=== PATIENT | female | born 1955 | race Two or more races ===

== ENCOUNTER 2025-06-20 11:28 | Emergency (ER) | payer OTHER ==
[~2025-06-20] VITALS: Ht 162.6 cm; Wt 113.0 kg
[2025-06-20 11:55] VITALS: PULSE 78; RESP 13; TEMP 97.8; O2SAT 97
--- NOTE | 2025-06-20 11:56 | ED.PDOC ---
History of Present Illness HPI Comments 70-year-old female BIBA with prior medical history of AFib, hypertension(do not take meds this morning) and the chief complaint of palpitations. EMS report that the patient was picked up from home after calling for symptoms of weakness, dizziness, shortness of breath, lightheadedness and fluttering chest pain which all started this morning. EMS notes the when the firefighters arrived to the residence, the patient had a heart rate between 180-130 on scene. In route to the ER the patient has a heart rate of 83. Patient notes that she does take blood thinners. 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 Family History Family History: Reviewed,noncontributory to illness, Unknown Social History Smoker: Non-Smoker Alcohol: Denies ETOH Use Drugs: Denies Drug Use Lives In: Home Constitutional: reports: weakness; denies: chills, diaphoresis, fatigue, fever, malaise, sweats, others EENTM: denies: blurred vision, double vision, ear bleeding, ear discharge, ear drainage, ear pain, ear ringing, eye pain, eye redness, hearing loss, mouth pain, mouth swelling, nasal discharge, nose bleeding, nose congestion, nose pain, photophobia, tearing, throat pain, throat swelling, voice changes, others Respiratory: reports: shortness of breath; denies: cough, hemoptysis, orthopnea, SOB at rest, SOB with excertion, stridor, wheezing, others Cardiovascular: reports: chest pain (Fluttering chest pain); denies: dizzy spells, diaphoresis, Dyspnea on exertion, edema, irregular heart beat, left arm pain, lightheadedness, palpitations, PND, syncope, others Gastrointestinal: denies: abdomen distended, abdominal pain, blood streaked bowels, constipated, diarrhea, dysphagia, difficulty swallowing, hematemesis, melena, nausea, poor appetite, poor fluid intake, rectal bleeding, rectal pain, vomiting, others Genitourinary: denies: abnormal vagina bleeding, burning, dyspareunia, dysuria, flank pain, frequency, hematuria, incontinence, pain, , vagina discharge, urgency, others Neurological: reports: dizziness, others (Lightheadedness); denies: fainting, headache, left sided numbness, left sided weakness, numbness, paresthesia, pre- existing deficit, right sided numbness, right sided weakness, seizure, speech problems, tingling, tremors, weakness Musculoskeletal: denies: back pain, gout, joint pain, joint swelling, muscle pain, muscle stiffness, neck pain, others Integumetry: denies: bruises, change in color, change in hair/nails, dryness, laceration, lesions, lumps, rash, wounds, others Allergic/Immunocompromised: denies: Difficulty Healing, Frequent Infections, Hives, Itching, others Hematologic/Lymphatic: denies: anemia, blood clots, easy bleeding, easy bruising, swollen glands, others Endocrine: denies: excessive hunger, excessive sweating, excessive thirst, excessive urination, flushing, intolerance to cold, intolerance to heat, unexplained weight gain, unexplained weight loss, others Psychiatric: denies: anxiety, bipolar disorder, depression, hopeless, panic disorder, schizophrenia, sleepless, suicidal, others All Other Systems: Reviewed and Negative Physical Exam General Appearance: Moderate Distress, Normal HEENT: Normal ENT Inspection, Pharynx Normal, TMs Normal Neck: Full Range of Motion, Non-Tender, Normal, Normal Inspection Respiratory: Chest Non-Tender, Lungs Clear, No Accessory Muscle Use, No Respiratory Distress, Normal Breath Sounds Cardiovascular: No Edema, No JVD, No Murmur, No Gallop, Normal Peripheral Pulses, Regular Rate/Rhythm Breast Exam: Deferred Gastrointestinal: No Organomegaly, Non Tender, No Pulsatile Mass, Normal Bowel Sounds, Soft Genitalia: Deferred Pelvic: Deferred Rectal: Deferred Extremities: No calf tenderness, Normal capillary refill, Normal inspection, Normal range of motion, Non-tender, No pedal edema Musculoskeletal : Apperance: Normal Neurologic: Alert, joint setter II-XII nml as Tested, No Motor Deficits, Normal Affect, Normal Mood, No Sensory Deficits Cerebellar Function: Normal Reflexes: Normal Skin: Dry, Normal Color, Warm Peripheral Pulses: 3+ Radial (R), 3+ Radial (L) Lymphatic: No Adenopathy Was a procedure done? Was a procedure done?: No Differential Dx Considerations may include: Anxiety Electrolyte imbalance X-Ray, Labs, Meds, VS Vital Signs Date Time Temp Pulse Resp B/P (MAP) Pulse Ox O2 Delivery O2 Flow Rate FiO2 06/20/25 13:00 78 15 160/84 (109) 98 06/20/25 11:55 97.8 78 13 163/55 (91) 97 97.8 06/20/25 11:55 78 13 97 Room Air* 0 21 06/20/25 11:41 98.5 83 22 151/100 (117) 98 98.5 06/20/25 11:30 80 Lab Test 06/20/25 12:00 06/20/25 11:51 Range/Units White Blood Count 6.9 4.4-10.8 10^3/uL Red Blood Count 4.97 4.0-5.20 10^6/uL Hemoglobin 16.0 12.2-16.2 g/dL Hematocrit 45.5 36.0-46.0 % Mean Corpuscular Volume 91.7 80.0-100.0 fL Mean Corpuscular Hemoglobin 32.2 H 28.0-32.0 pg Mean Corpuscular Hemoglobin Concent 35.2 32.0-36.0 g/dL Red Cell Distribution Width 13.0 11.8-14.3 % Platelet Count 254 140-450 10^3/uL Mean Platelet Volume 8.9 6.9-10.8 fL Neutrophils (%) (Auto) 55.9 37.0-80.0 % Lymphocytes (%) (Auto) 34.2 10.0-50.0 % Monocytes (%) (Auto) 7.4 0.0-12.0 % Eosinophils (%) (Auto) 1.9 0.0-7.0 % Basophils (%) (Auto) 0.6 0.0-2.0 % Neutrophils # (Auto) 3.8 1.6-8.6 10 ^3/uL Lymphocytes # (Auto) 2.4 0.4-5.4 10 ^3/uL Monocytes # (Auto) 0.5 0-1.3 10 ^3/uL Eosinophils # (Auto) 0.1 0-0.8 10 ^3/uL Basophils # (Auto) 0 0-0.2 10 ^3/uL Nucleated Red Blood Cells 0.1 % Sodium Level 142 136-145 mmol/L Potassium Level 3.8 3.5-5.1 mmol/L Chloride Level 106 98-107 mmol/L Carbon Dioxide Level 25 20-31 mmol/L Anion Gap 11 5-15 Blood Urea Nitrogen 10 9-23 mg/dL Creatinine 0.77 0.550-1.02 mg/dL Glomerular Filtration Rate Calc 84 >90 mL/min BUN/Creatinine Ratio 13.0 10.0-20.0 Serum Glucose 95 74-106 mg/dL Calcium Level 10.3 8.7-10.4 mg/dL Troponin I High Sensitivity 4 </=34 ng/L Urine Color Colorless Yellow Urine Clarity Clear Clear Urine pH 7.0 5.0-9.0 Urine Specific [place] 1.002 1.001-1.035 Urine Protein Negative Negative Urine Ketones Negative Negative Urine Blood Negative Negative /uL Urine Nitrite Negative Negative Urine Bilirubin Negative Negative Urine Urobilinogen Normal Negative mg/dL Urine Leukocyte Esterase Negative Negative /uL Urine RBC None seen 0 - 4 /hpf Urine Microscopic WBC < 1 0-5 /HPF Urine Squamous Epithelial Cells Few <5 /hpf Urine Bacteria None seen None Seen /hpf Urine Glucose Normal Normal mg/dL Current Medications Medications (Trade) Dose Ordered Sig/Nuris Route Start Time Stop Time Status Last Admin Lorazepam (Ativan Inj) 1 mg ONCE ONCE IV 06/20/25 11:45 06/20/25 11:46 DC 06/20/25 12:08 Patient alert. Anxious. Vitals stable. Answering questions. Was given Ativan. Cardiac marker within normal limits. EKG does not show any acute changes. WBC within normal limits. Hemoglobin within normal limits. She is comfortable. She states that she is pain-free. No leg swelling. No shortness a breath. Explained to the patient. Was told to follow up with her primary care physician. Was told to come back if there is any problem. Time of 1ST Reevaluation: 11:55 Reevaluation 1ST: Improved Patient Education/Counseling: Diagnosis, Treatment, Prognosis Family Education/Counseling: No Family Present SEPSIS Sepsis Screen Physician Orders Electrocardigram (06/20/25 11:35) Vital Signs Date Time Temp Pulse Resp B/P (MAP) Pulse Ox O2 Delivery O2 Flow Rate FiO2 06/20/25 13:00 78 15 160/84 (109) 98 06/20/25 11:55 97.8 78 13 163/55 (91) 97 97.8 06/20/25 11:55 78 13 97 Room Air* 0 21 06/20/25 11:41 98.5 83 22 151/100 (117) 98 98.5 06/20/25 11:30 80 Laboratory Tests Test 06/20/25 12:00 White Blood Count 6.9 10^3/uL (4.4-10.8) Medications Medications Dose Ordered Sig/Nuris Route Start Time Stop Time Status Last Admin Dose Admin Lorazepam 1 mg ONCE ONCE IV 06/20/25 11:45 06/20/25 11:46 DC 06/20/25 12:08 Departure 1 Departure Time of Disposition: 13:25 Impression: Primary Impression: HTN (hypertension) Qualified Codes: I10 - Essential (primary) hypertension Additional Impression: Musculoskeletal chest pain Disposition: HOME / SELF CARE / HOMELESS Condition: Good Discharged With: Self Critical Care Note Critical Care Time?: No Stability Stability form required: No Heart Score Heart Score: Heart Score Response (Comments) Value History Slightly Suspicious 0 EKG Normal 0 Age >65 2 Risk Factors 1 or 2 risk factors 1 Troponin Normal limit 0 Total 3 I personally scribed for LAURA DYE MD ([email or web address]) on 06/20/25 at 11:56. Electronically submitted by Garfield Rod ([email or web address]). LAURA DYE MD Jun 20, 2025 11:56
[2025-06-20] MEDS: LORazepam 2MG/ML-1ML VIAL IV ONE (12:08)
[2025-06-20 12:20] LABS: Hematocrit 45.5 % (36.0-46.0); Hemoglobin 16.0 g/dL (12.2-16.2); Mean Corpuscular Hemoglobin 32.2 pg (28.0-32.0); Mean Corpuscular Volume 91.7 fL (80.0-100.0); Nucleated Red Blood Cells % 0.1 %
[2025-06-20 12:34] LABS: Chloride 106 mmol/L (98-107); Potassium 3.8 mmol/L (3.5-5.1); Sodium 142 mmol/L (136-145)
[2025-06-20 12:35] LABS: Anion Gap 11 (5-15); Calcium 10.3 mg/dL (8.7-10.4); Carbon Dioxide 25 mmol/L (20-31)
[2025-06-20 12:40] LABS: BUN/Creatinine Ratio 13.0 (10.0-20.0); Blood Urea Nitrogen 10 mg/dL (9-23); Glucose 95 mg/dL (74-106)
[2025-06-20 12:46] LABS: Urine Protein, UAD Negative (Negative)
[2025-06-20 13:00] VITALS: BP 160/84; PULSE 78; RESP 15; O2SAT 98
--- NOTE | 2025-06-21 12:30 | ECG ---
[facility] Test Date: 2025-06-20 Test Time: 11:30:42 Pat Name: JEN ALEMAN Department: ED Room: Gender: F Health Record Technician: aline : 1955 Requested By: LAURA DYE Order Number: [id number] Reading MD: Measurements Intervals Brice Rate: 80 P: 62 RI: 171 QRS: -14 QRSD: 97 T: 7 QT: 356 QTc: 411 Interpretive Statements Sinus rhythm Inferior infarct, old Baseline wander in lead(s) II,III,aVF Please click the below link to view image of tracing.
== END 2025-06-20 13:45 | disposition home or self-care (01) ==
LOC: ER 11:28 → EDBD 11:28 → ER 13:42
DX: I10 Essential (primary) hypertension (principal); R07.89 Other chest pain; I48.91 Unspecified atrial fibrillation; Z88.0 Allergy status to penicillin; Z79.899 Other long term (current) drug therapy
CPT/HCPCS: 36415; 80048; 81001; 84484; 85025; 93005; 96374; 99284; J2060

== ENCOUNTER 2025-10-30 12:45 | Emergency (ER) | payer OTHER ==
[~2025-10-30] VITALS: Ht 167.6 cm; Wt 94.5 kg
--- NOTE | 2025-10-30 13:16 | ECG ---
[facility] Test Date: 2025-10-30 Test Time: 13:00:07 Pat Name: JEN ALEMAN Department: ED Room: Gender: F Courtroom Deputy: BENITA : 1955 Requested By: LAURA DYE Order Number: [id number] Reading MD: Omkar Flores Measurements Intervals [place] Rate: 86 P: 47 MI: 145 QRS: -14 QRSD: 103 T: 0 QT: 372 QTc: 445 Interpretive Statements Sinus rhythm Abnormal R-wave progression, early transition Inferior infarct, old Artifact in lead(s) II,III,aVF,V1,V2,V3,V4,V5,V6 Electronically Signed On 10-30-2025 15:10:05 PST by Omkar Flores Please click the below link to view image of tracing.
--- NOTE | 2025-10-30 13:22 | ED.PDOC ---
SOB-HPI HPI Comments 70-year-old female with PMHx HTN, seizure, meningioma, a-fib presents to the ED via EMS with a chief complaint of shortness of breath onset 10 days. Per EMS, patient was at the [facility] due to shortness of breath, cough for the past 10 days, was diagnosed with pneumonia. Patient states she began experiencing chest pressure, noticed shortness of breath worsened. Upon EMS arrival patient's O2 sat was 89% on RA, was given 3 breathing treatments in route to ED, O2 saturation improved tonight 97% on RA. Denies fever, chills, dizziness, headache, nausea, vomiting, diarrhea, numbness/tingling, dysuria, hematuria, hemoptysis. no other symptoms or modifying factors present at this time. 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 Family History Family History: Reviewed,noncontributory to illness, Unknown Social History Smoker: Non-Smoker Alcohol: Denies ETOH Use Drugs: Denies Drug Use Lives In: Home Constitutional: denies: chills, diaphoresis, fatigue, fever, malaise, sweats, weakness, others EENTM: denies: blurred vision, double vision, ear bleeding, ear discharge, ear drainage, ear pain, ear ringing, eye pain, eye redness, hearing loss, mouth pain, mouth swelling, nasal discharge, nose bleeding, nose congestion, nose pain, photophobia, tearing, throat pain, throat swelling, voice changes, others Respiratory: reports: cough, shortness of breath; denies: hemoptysis, orthopnea, SOB at rest, SOB with excertion, stridor, wheezing, others Cardiovascular: denies: chest pain, dizzy spells, diaphoresis, Dyspnea on exertion, edema, irregular heart beat, left arm pain, lightheadedness, palpitations, PND, syncope, others Gastrointestinal: denies: abdomen distended, abdominal pain, blood streaked bowels, constipated, diarrhea, dysphagia, difficulty swallowing, hematemesis, melena, nausea, poor appetite, poor fluid intake, rectal bleeding, rectal pain, vomiting, others Genitourinary: denies: abnormal vagina bleeding, burning, dyspareunia, dysuria, flank pain, frequency, hematuria, incontinence, pain, , vagina discharge, urgency, others Neurological: denies: dizziness, fainting, headache, left sided numbness, left sided weakness, numbness, paresthesia, pre-existing deficit, right sided numbness, right sided weakness, seizure, speech problems, tingling, tremors, weakness, others Musculoskeletal: denies: back pain, gout, joint pain, joint swelling, muscle pain, muscle stiffness, neck pain, others Integumetry: denies: bruises, change in color, change in hair/nails, dryness, laceration, lesions, lumps, rash, wounds, others Allergic/Immunocompromised: denies: Difficulty Healing, Frequent Infections, Hives, Itching, others Hematologic/Lymphatic: denies: anemia, blood clots, easy bleeding, easy bruising, swollen glands, others Endocrine: denies: excessive hunger, excessive sweating, excessive thirst, excessive urination, flushing, intolerance to cold, intolerance to heat, unexplained weight gain, unexplained weight loss, others Psychiatric: denies: anxiety, bipolar disorder, depression, hopeless, panic disorder, schizophrenia, sleepless, suicidal, others All Other Systems: Reviewed and Negative Physical Exam General Appearance: Moderate Distress, Normal HEENT: Normal ENT Inspection, Pharynx Normal, TMs Normal Neck: Full Range of Motion, Non-Tender, Normal, Normal Inspection Respiratory: Chest Non-Tender, No Accessory Muscle Use, Respiratory Distress, Other (Coarse breath sounds) Cardiovascular: No Edema, No JVD, No Murmur, No Gallop, Normal Peripheral Pulses, Regular Rate/Rhythm Breast Exam: Deferred Gastrointestinal: No Organomegaly, Non Tender, No Pulsatile Mass, Normal Bowel Sounds, Soft Genitalia: Deferred Pelvic: Deferred Rectal: Deferred Extremities: No calf tenderness, Normal capillary refill, Normal inspection, Normal range of motion, Non-tender, No pedal edema Musculoskeletal : Apperance: Normal Neurologic: Alert, hadoop developer II-XII nml as Tested, No Motor Deficits, Normal Affect, Normal Mood, No Sensory Deficits Cerebellar Function: NOT DONE Reflexes: NOT DONE Skin: Dry, Normal Color, Warm Peripheral Pulses: 3+ Radial (R), 3+ Radial (L) Lymphatic: No Adenopathy Was a procedure done? Was a procedure done?: No Differential Dx Differential Diagnosis: Anxiety, Asthma, Bronchitis X-Ray, Labs, Meds, VS Vital Signs Date Time Temp Pulse Resp B/P (MAP) Pulse Ox O2 Delivery O2 Flow Rate FiO2 10/30/25 13:57 98.0 85 26 125/58 (80) 99 98.0 10/30/25 13:50 22 98 Room Air* 0 21 10/30/25 13:00 86 10/30/25 12:48 99.2 78 26 139/87 99 99.2 Lab Test 10/30/25 13:30 Range/Units White Blood Count 9.2 4.4-10.8 10^3/uL Red Blood Count 4.63 4.0-5.20 10^6/uL Hemoglobin 14.3 12.2-16.2 g/dL Hematocrit 41.6 36.0-46.0 % Mean Corpuscular Volume 89.9 80.0-100.0 fL Mean Corpuscular Hemoglobin 30.9 28.0-32.0 pg Mean Corpuscular Hemoglobin Concent 34.4 32.0-36.0 g/dL Red Cell Distribution Width 12.8 11.8-14.3 % Platelet Count 264 140-450 10^3/uL Mean Platelet Volume 8.6 6.9-10.8 fL Neutrophils (%) (Auto) 60.0 37.0-80.0 % Lymphocytes (%) (Auto) 32.2 10.0-50.0 % Monocytes (%) (Auto) 5.6 0.0-12.0 % Eosinophils (%) (Auto) 1.2 0.0-7.0 % Basophils (%) (Auto) 1.0 0.0-2.0 % Neutrophils # (Auto) 5.5 1.6-8.6 10 ^3/uL Lymphocytes # (Auto) 2.9 0.4-5.4 10 ^3/uL Monocytes # (Auto) 0.5 0-1.3 10 ^3/uL Eosinophils # (Auto) 0.1 0-0.8 10 ^3/uL Basophils # (Auto) 0.1 0-0.2 10 ^3/uL Nucleated Red Blood Cells 0.1 % Sodium Level 141 136-145 mmol/L Potassium Level 3.4 L 3.5-5.1 mmol/L Chloride Level 105 98-107 mmol/L Carbon Dioxide Level 24 20-31 mmol/L Anion Gap 12 5-15 Blood Urea Nitrogen 8 L 9-23 mg/dL Creatinine 0.79 0.550-1.02 mg/dL Glomerular Filtration Rate Calc 81 >90 mL/min BUN/Creatinine Ratio 10.1 10.0-20.0 Serum Glucose 99 74-106 mg/dL Calcium Level 9.6 8.7-10.4 mg/dL Current Medications Medications (Trade) Dose Ordered Sig/Nuris Route Start Time Stop Time Status Last Admin Methylprednisolone Sodium Succinate (Solu Medrol) 125 mg ONCE ONCE IV 10/30/25 13:30 10/30/25 13:31 DC 10/30/25 13:30 Albuterol (Ventolin Medneb) 5 mg ONCE ONCE NEB 10/30/25 13:30 10/30/25 13:31 DC 10/30/25 13:50 Ipratropium [place] (Atrovent Medneb) 0.5 mg ONCE ONCE NEB 10/30/25 13:30 10/30/25 13:31 DC 10/30/25 13:50 [place] [id number] Ph: [phone] DIAGNOSTIC IMAGING Diagnostic Imaging Report : [id number] Signed PATIENT: JEN ALEMAN ACCT: [id number] UNIT: [id number] : 1955 LOC: ER ROOM / BED: / AGE / SEX: 70 / F ADM STATUS: REG ER SERVICE 1319 ORDERING PHYSICIAN: LAURA DYE MD PROCEDURE(s): CXRP - CHEST PORTABLE REASON: sob ORDER NUMBER(s): [id number], ACCESSION NUMBER(s): [id number] CHEST RADIOGRAPH Indication: sob Technique: Single frontal view of the chest was obtained COMPARISON: None FINDINGS: Lines and Tubes: None Lungs: Increased interstitial prominence. This may represent pulmonary vascular congestion and/or viral pneumonia. Pleura: No effusion.No pneumothorax. Cardiomediastinal contours: Unremarkable Bones: Unremarkable IMPRESSION: Increased interstitial prominence. This may represent pulmonary vascular congestion and/or viral pneumonia. ATED BY: QUENTIN BARAJAS MD DICTATED DATE/TIME: 10/30/251407 SIGNED BY: QUENTIN BARAJAS MD SIGNED DATE/TIME: 10/30/251407 CC: Patient alert. Placed on oxygen. Complaining of shortness a breath. Answering questions. Chest x-ray reviewed does show congestion with the inflammation possible pneumonitis. Was given steroid. Was given breathing treatment. Was given Levaquin. EKG reviewed does not show any acute changes. Explained to the patient. Continue to monitor. [place] approved ER visit [id number]. Time of 1ST Reevaluation: 13:40 Reevaluation 1ST: Unchanged Patient Education/Counseling: Diagnosis, Treatment, Prognosis Family Education/Counseling: No Family Present SEPSIS Sepsis Screen Date sepsis recognized/suspect: Oct 30, 2025 Time Sepsis recognized/suspect: 1248 Recent Procedure: No On Antibiotic Therapy: No Respiratory Rate >20: Yes Heart Rate >90: No Temp<36 C (96.8 F) or >38.3 C: No SBP <90 or MAP <65 mmHG: No New Acute Mental Status Change: No Is the patient on CPAP, BIPAP,: No Physician Orders Chest Portable (10/30/25 13:19) Urinalysis (10/30/25 13:19) Rapid Influenza A&B (10/30/25 13:19) Levofloxacin 500mg (Levaquin 500mg/ 100m (10/30/25 14:30) Vital Signs Date Time Temp Pulse Resp B/P (MAP) Pulse Ox O2 Delivery O2 Flow Rate FiO2 10/30/25 13:57 98.0 85 26 125/58 (80) 99 98.0 10/30/25 13:50 22 98 Room Air* 0 21 10/30/25 13:00 86 10/30/25 12:48 99.2 78 26 139/87 99 99.2 Laboratory Tests Test 10/30/25 13:30 White Blood Count 9.2 10^3/uL (4.4-10.8) Medications Medications Dose Ordered Sig/Nuris Route Start Time Stop Time Status Last Admin Dose Admin Albuterol 5 mg ONCE ONCE NEB 10/30/25 13:30 10/30/25 13:31 DC 12/2/25 13:50 Ipratropium [place] 0.5 mg ONCE ONCE NEB 10/30/25 13:30 10/30/25 13:31 DC 10/30/25 13:50 Methylprednisolone Sodium Succinate 125 mg ONCE ONCE IV 10/30/25 13:30 10/30/25 13:31 DC 10/30/25 13:30 Departure 1 Departure Time of Disposition: 14:26 Impression: Primary Impression: Acute respiratory failure Qualified Codes: J96.01 - Acute respiratory failure with hypoxia Additional Impression: Pneumonitis Disposition: 09 ADMITTED INPATIENT Admit to: Med Surg Condition: Guarded Critical Care Note Critical Care Time?: Yes (90 min-critical care time only) Stability Stability form required: No Heart Score Heart Score: Heart Score Response (Comments) Value History Slightly Suspicious 0 EKG Normal 0 Age >65 2 Risk Factors >3 or Hx ASHD 2 Troponin Normal limit 0 Total 4 I personally scribed for LAURA DYE MD ([email or web address]) on 10/30/25 at 13:22. Electronically submitted by Vi Arce ([email or web address]). I personally scribed for LAURA DYE MD ([email or web address]) on 10/30/25 at 13:25. Electronically submitted by Vi Arce ([email or web address]). I personally scribed for LAURA DYE MD ([email or web address]) on 10/30/25 at 14:23. Electronically submitted by Vi Arce ([email or web address]). LAURA DYE MD Oct 30, 2025 13:22
[2025-10-30] MEDS: methylPREDNISolone SOD SUCC 125 MG/2 ML VL IV ONE (13:30)
[2025-10-30] MEDS: ALBUTEROL SULF 2.5 MG/0.5ML(0.5%) NEB SOLN NEB ONE (13:50)
[2025-10-30] MEDS: IPRATROPIUM BROM 0.5 MG/2.5ML INH SOL NEB ONE (13:50)
[2025-10-30 13:51] LABS: Hematocrit 41.6 % (36.0-46.0); Hemoglobin 14.3 g/dL (12.2-16.2); Mean Corpuscular Hemoglobin 30.9 pg (28.0-32.0); Mean Corpuscular Volume 89.9 fL (80.0-100.0); Nucleated Red Blood Cells % 0.1 %
[2025-10-30 14:00] LABS: Chloride 105 mmol/L (98-107); Sodium 141 mmol/L (136-145)
[2025-10-30 14:01] LABS: Anion Gap 12 (5-15); Carbon Dioxide 24 mmol/L (20-31)
[2025-10-30 14:02] LABS: Calcium 9.6 mg/dL (8.7-10.4)
[2025-10-30 14:03] LABS: Potassium 3.4 mmol/L (3.5-5.1)
[2025-10-30 14:07] LABS: BUN/Creatinine Ratio 10.1 (10.0-20.0); Glucose 99 mg/dL (74-106)
[2025-10-30 14:10] LABS: Blood Urea Nitrogen 8 mg/dL (9-23)
--- NOTE | 2025-10-30 14:11 | DVH ---
CHEST RADIOGRAPH Indication: sob Technique: Single frontal view of the chest was obtained COMPARISON: None FINDINGS: Lines and Tubes: None Lungs: Increased interstitial prominence. This may represent pulmonary vascular congestion and/or viral pneumonia. Pleura: No effusion.No pneumothorax. Cardiomediastinal contours: Unremarkable Bones: Unremarkable IMPRESSION: Increased interstitial prominence. This may represent pulmonary vascular congestion and/or viral pneumonia.
[2025-10-30 15:48] VITALS: RESP 19; O2SAT 98
[2025-10-30 18:17] LABS: Urine Protein, UAD Negative (Negative)
[2025-10-30 18:42] VITALS: BP 134/62; PULSE 90; RESP 18; TEMP 99; O2SAT 96
== END 2025-10-30 18:54 | disposition short-term general hospital (02) ==
LOC: ER 12:45 → EDBD 12:45 → ER 18:54
DX: J96.90 Respiratory failure, unspecified, unspecified whether with hypoxia or hypercapnia (principal); J98.4 Other disorders of lung; I10 Essential (primary) hypertension; I48.91 Unspecified atrial fibrillation
CPT/HCPCS: 36415; 71045; 80048; 81001; 85025; 87804; 93005; 94640; 96365; 96375; 99291; 99292; J1956; J2919